=== PATIENT | female | born 1950 | race Two or more races ===

== ENCOUNTER 2016-09-21 08:30 | Day surgery (SDC) | payer MEDICARE, OTHER ==
[2016-09-19 12:52] LABS: BASOPHILS 0.3 %; BASOPHILS ABSOLUTE 0.02 10/3/uL (0.0-0.16); EOSINOPHILS 0.6 %; EOSINOPHILS ABSOLUTE 0.04 10/3/uL (0.0-0.53); HEMATOCRIT 39.8 % (36.0-48.0); HEMOGLOBIN 13.5 g/dL (12.0-16.0); IMMATURE GRANULOCYTES 0.2 %; IMMATURE GRANULOCYTES ABSOLUTE 0.01 10/3/uL (0.0-0.11); LYMPHOCYTES 31.1 %; LYMPHOCYTES ABSOLUTE 2.01 10/3/uL (0.67-4.30); MEAN CORPUS HGB CONC 33.9 g/dL (32.0-36.0); MEAN CORPUSCULAR HEMOGLOB 30.3 pg (26.0-34.0); MEAN CORPUSCULAR VOLUME 89.4 fL (80-100); MONOCYTES 5.1 %; MONOCYTES ABSOLUTE 0.33 10/3/uL (0.21-1.20); NEUTROPHILS 62.7 %; NEUTROPHILS ABSOLUTE 4.06 10/3/uL (2.02-8.40); PLATELET COUNT 227 10/3/uL (150-400); RBC DISTRIBUTION WIDTH 12.8 % (12.0-16.0); RED CELL COUNT 4.45 10/6/uL (4.0-5.6); WHITE BLOOD CELLS 6.5 10/3/uL (4.5-10.5)
[2016-09-19 12:53] LABS: MANUAL DIFF NO %
[2016-09-19 12:58] LABS: INTERNATIONAL NORMAL RATI 1.1 UNITS (-); PARTIAL THROMBO TIME 27.7 SEC (22.5-37.2); PROTIME (NOT ORD) 13.7 SEC (12.0-14.5)
[2016-09-19 13:15] LABS: ALBUMIN 3.7 G/DL (3.5-5.0); ALKALINE PHOSPHATASE 97 U/L (45-117); BUN (BLOOD UREA NITROGEN) 16 MG/DL (6-23); CALCIUM, SERUM 9.3 MG/DL (8.5-10.4); CHLORIDE, SERUM 108 MMOL/L (96-112); CO2 (CARBON DIOXIDE) 27 MMOL/L (24-34); CREATININE 0.88 MG/DL (0.55-1.02); GFR AFRICAN AMERICAN 80 ML/MIN (>=60); GFR NON AFRICAN AMERICAN 69 ML/MIN (>=60); GLOBULIN 3.7 G/DL (2.5-4.1); GLUCOSE, SERUM 151 MG/DL (60-99); SGOT(AST) 14 U/L (5-40); SGPT(ALT) 21 U/L (5-65); SODIUM, SERUM 141 MMOL/L (135-148); TOTAL BILIRUBIN 0.3 MG/DL (0-1.2); TOTAL PROTEIN 7.4 G/DL (6.0-8.5)
--- NOTE | ~2016-09-21 | OP ---
Record Of Operation [facility] [address] [place]. [address] NAME: MIGEL FOY : 52 STATUS : [facility]#: [id number] AGE: 66 ADM/REG DATE : 09/21/16 MR#: [id number] REPORT SERV DATE: 09/21/16 DICTATED BY: MARTHA CASIANO III DATE: 09/21/16 REPORT STATUS : Draft TRANSCRIBED BY: MODL DATE: 09/21/16 DATE OF PROCEDURE: 09/21/2016 PREOPERATIVE DIAGNOSIS AND PERTINENT INFORMATION: The patient is a 66-year-old female with a several-month history of bleeding from her rectal area. She has been having some external tissue coming from her anal canal, which she has had to push back up inside. She has had some significant diarrhea and constipation, but more of a constipation process. She is on Linzess capsules, which seem to help. She has had a colonoscopy by Dr. Krishnan showing the hemorrhoids. The patient has been seen in the office with an anoscope in the office showing significant patulous internal prolapsing grade 3 prolapse of the mucosa only with some external hemorrhoids on the anterior surface. 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 PROCEDURE: Anoscopy with exam under anesthesia preceded by anal block using 30 mL of 0.5% Marcaine with epinephrine. This was followed by PPH (procedure for prolapse and hemorrhoids). This was an excision of prolapsed mucosa. This was followed by internal- external hemorrhoidectomy on the anterior surface with closure. The final portion of the operation was a rigid sigmoidoscopy, which was done to 15 cm only because of the unavailability of a scope that would be of adequate size to safely go the extra 10 cm. SURGEON: Martha Casiano M.D., F.A.C.S. SET UP TECHNICIAN: Olive Casiano RN [employer] ANESTHESIA: General endotracheal tube with the patient in the buzz-knife prone position with buttocks taped open. SPECIMEN REMOVED: Rectal mucosal prolapsing tissue that was circumferential and a second specimen of anterior internal-external hemorrhoids. ESTIMATED BLOOD LOSS: 5 mL. COMPLICATION: The only complication was the nonavailability of a normal size rigid sigmoidoscope, requiring the use of an oversize scope, which could not be safely used beyond 15 cm level. Also, there were no half-sunshine retractor set on the tray, which was limiting but not a major issue. DESCRIPTION OF PROCEDURE: Time-out was called and there was no dissension amongst the staff about allergies and procedure to be performed. The patient is only allergic to metformin. The procedure and equipment were all discussed. The disposable PPH device was identified and opened prior to the procedure beginning. Record Of Operation [facility] [address] [place]. [address] NAME: MIGEL FOY : 52 STATUS : [facility] PAT#: [id number] AGE: 66 ADM/REG DATE : 09/21/16 MR#: [id number] REPORT SERV DATE: 09/21/16 DICTATED BY: MARTHA CASIANO III DATE: 09/21/16 REPORT STATUS : Draft TRANSCRIBED BY: PAU DATE: 09/21/16 After time-out had been completed, the area of the anal region was approached. An external exam showed some prolapsing external hemorrhoidal tissues on the anterior surface even with the patient in the steep buzz-knife position. The anal block was then performed circumferentially using a long 25-gauge needle, injecting the 30 mL of 0.5% Marcaine circumferentially at different levels. After this was done, the Isaac anoscope was introduced and internal exam performed, showing very patulous mucosal loosening circumferentially with a propensity anteriorly to extend out onto the hemorrhoidal surface. Majority of the largest hemorrhoid was anterior, but the mucosal prolapse was more posterior and to the right side. The disposable anoscope was then introduced and sutured to the perianal skin with 2-0 silk sutures in four quadrants. The half-sunshine obturator was then placed inside the anoscope and the pursestring 2-0 Prolene placed into the mucosa and multiple small bites circumferentially rotating the obturator as we went around for 360- degree pursestring effect. After this was done, the half obturator was removed and pursestring pulled up snugly. The 33-mm stapling device was then introduced through the pursestring, encompassing majority of the mucosal redundant tissue. The pursestring was then pulled up through the stapling device using the rosie hooks provided and the ends of the pursestring tied together to allow for a good constant tension on the pursestring as the stapling device was tightened down to a short staple height. The stapling device was then fired and held in compression for 3 minutes by the clock. The stapling device was then opened and removed from the anoscope with good hemostatic control noted. There was still a fair amount of patulous tissue above the staple line, but certainly no evidence of significant hematoma or redundant prolapse distally. After this was done, the sutured in anoscope was removed and the Isaac anoscope reintroduced and the staple line reinspected with no additional findings and good hemostasis. The anterior hemorrhoids that were internal-external were then excised submucosally using a cautery for hemostatic control and this excision was carried all the way up to the staple line of the PPH resection. 3-0 chromic sutures were then used to close the defect from the ellipsing mucosal excision of the hemorrhoids out onto the perianal skin where it was converted from a locking suture to a submucosal-subcuticular closure. This specimen was submitted separately. Area was reinspected and #100 size Gelfoam placed with Nupercainal ointment and bulky dressing material applied externally. The patient is discharged on Lortab 5/325 to take every four hours p.r.n. for pain and Zofran 4 mg to take every six hours p.r.n. for nausea. The patient will be followed up in the office in seven to 14 days and is to continue with stool softening to prevent constipation during her recovery as well as topical Nupercainal ointment and sitz baths as desired. CORRINE/PAU Martha Kim Of [address] [place] [place]. [address] NAME: MIGEL FOY : 52 STATUS : [facility] PAT#: [id number] AGE: 66 ADM/REG DATE : 09/21/16 MR#: [id number] REPORT SERV DATE: 09/21/16 DICTATED BY: MARTHA CASIANO III DATE: 09/21/16 REPORT STATUS : Draft TRANSCRIBED BY: MODL DATE: 09/21/16 Oh ALVAREZ M.D. / [id number] CC: Tatum Caldwell III, M.D. Jay Philippose, M.D.
[~2016-09-21 08:30] MED LIST: ADVIL PO; AMARYL4 PO; LINZESS 145 M145 MCG PO; PRIN10 PO; TRADJENTA5 MG PO; ZYRTEC ALLGY10 MG PO
== END 2016-09-21 16:14 | disposition home or self-care (01) ==
LOC: SDC 08:30
PROVIDERS: Surgery
PROC: 06BY0ZC Excision of Hemorrhoidal Plexus, Open Approach (ICD-10-PCS; principal; 2016-09-21 09:45)
DX: K64.2 Third degree hemorrhoids (principal); K62.3 Rectal prolapse; I10 Essential (primary) hypertension; E11.9 Type 2 diabetes mellitus without complications; Z98.890 Other specified postprocedural states; Z86.010 Personal history of colon polyps; Z90.710 Acquired absence of both cervix and uterus; Z79.899 Other long term (current) drug therapy; Z98.41 Cataract extraction status, right eye; Z98.42 Cataract extraction status, left eye; Z90.49 Acquired absence of other specified parts of digestive tract
CPT/HCPCS: 80053; 82962; 85025; 85610; 85730; 88304; 93005; A9270-GY; J2250; J2270; J2370; J2405; J2710; J3010